=== PATIENT | female | born 1995 | race Caucasian/White ===

== ENCOUNTER 2024-05-01 21:54 | Emergency (ER) | payer OTHER, SELFPAY ==
[2024-05-01 22:19] VITALS: BP 158/114
[2024-05-01 22:38] VITALS: BMI 86.1
[2024-05-01 22:52] LABS: % Basophils 0.5 % (0-2); % Eosinophils 2.1 % (0-6); % Immature Granulocytes 0.3 % (0-0.5); % Lymphocytes 28.5 % (20.5-51.1); % Monocytes 5.7 % (1.7-9.3); % Neutrophils 62.9 % (42.2-75.2); Absolute Basophils 0.1 10^3/uL (0-0.2); Absolute Eosinophils 0.2 10^3/uL (0-0.7); Absolute Lymphocytes 2.7 10^3/uL (1.2-3.4); Absolute Monocytes 0.6 10^3/uL (0.1-0.6); Hemoglobin 12.8 g/dL (12.0-16.0); Mean Corpuscular Hgb 26.9 pg (27.0-31.0); Mean Corpuscular Volume 84.2 fL (81.0-99.0); Mean Platelet Volume 11.6 fL (7.4-10.4); Nucleated Red Blood Cells % 0 %; Platelet Count 290 10^3/uL (130-400); Red Blood Cell Count 4.75 10^6/uL (4.20-5.40); Red Cell Dist. Width 14.3 % (11.5-14.5); White Blood Cell Count 9.6 10^3/uL (4.8-10.8)
[2024-05-01 23:03] LABS: ALT (SGPT) 30 U/L (0-35); AST (SGOT) 26 U/L (14-36); Albumin 4.3 g/dl (3.5-5.0); Alkaline Phosphatase 111 U/L (38-126); Blood Urea Nitrogen 15 mg/dl (7-17); Calcium 9.2 mg/dl (8.4-10.2); Carbon Dioxide 24 mmol/L (22-30); Chloride 103 mmol/L (98-107); Estimated Creatinine Clearance > 125 ml/min; Glucose 179 mg/dl (70-99); Sodium 137 mmol/L (135-145); Total Bilirubin 0.6 mg/dl (0.2-1.3); Total Protein 7.9 g/dl (6.3-8.2); eGFR > 60.00
[2024-05-01 23:14] LABS: NT-proBNP 116 pg/ml; Troponin I < 0.012 ng/ml
[2024-05-01 23:34] VITALS: BP 146/75
[2024-05-02] MEDS: TORADOL 30 MG IM (00:13)
--- NOTE | 2024-05-02 00:18 | ED.GENMED ---
History of Present Illness
General
Chief Complaint: Fainting/Passed Out
Source: patient and significant other
Exam Limitations: none
Time Seen by Provider: 05/01/24 23:58
History of Present Illness
History of Present Illness:
See MDM
Past History
Past History
ED Past Medical History: None
ED Past Surgical History: None
Social History
Tobacco: Non-smoker
Alcohol: None
Phy Exam
Physical Exam
Physical Exam:
See MDM
Course
Orders/Labs/Results
Orders:
Orders
05/01/24 21:58
EKG [Electrocardiogram (*1)] Urgent
Reason for Study: Syncope
05/01/24 21:59
EKG- Treatment ONCE
05/01/24 22:29
Electrocardiogram (*1) Urgent
Reason for Study: Other
Other Reason for Exam: Respiratory Distress
Cardiac Monitoring- Treatment ONCE
EKG- Treatment ONCE
IV Insert/Care/Rem.- Treatment PRN
CR Chest - 2 Views Urgent
Comment:
Reason For Exam: respiratory distress
O2 Therapy [RESP] Urgent
Titrate/Wean O2 to maintain O2 sat greater than (%): 93
Special Instructions: TO MAINTAIN CONTINUOUS O2 SATS >/= 93%
Pulse Ox/cont/shift [RESP] Urgent
Quantity: 1
Special Instructions: continuous pulse ox
05/01/24 22:37
Complete Blood Count/With Diff Urgent
Comprehensive Metabolic Panel Urgent
NT-proBNP Urgent
Troponin I Urgent
05/02/24 00:07
CT Head W/o Iv Contrast Urgent
Comment:
Reason For Exam: R side headache
Ketorolac [Toradol] 30 mg IM NOW STA
Abnormal Lab Results
05/01/24
22:37
MCH 26.9 L pg
(27.0-31.0)
MCHC 32.0 L g/dL
(33.0-37.0)
MPV 11.6 H fL
(7.4-10.4)
Glucose 179 H mg/dl
(70-99)
05/01/24 22:37
05/01/24 22:37
Vital Signs
Initial and Last Documented VS:
Initial Vital Signs
Temp Pulse Resp BP Pulse Ox
98.6 F 95 20 158/114 96
05/01/24 22:19 05/01/24 22:19 05/01/24 22:19 05/01/24 22:19 05/01/24 22:19
Last Documented Vital Signs
Temp Pulse Resp BP Pulse Ox
98.6 F 87 18 146/75 97
05/01/24 22:19 05/01/24 23:34 05/01/24 23:34 05/01/24 23:34 05/01/24 23:34
MDM/Problems Addressed
Differential Diagnosis Includes:
HPI and MDM Narrative:
28-year-old female presenting for evaluation of headache and confusion. Her significant other noted that she was sleeping on the couch. Patient does acknowledge that she laid down to take a nap. He was worried because she was hard to arouse and
had repetitive questioning. They initially thought this could be a diabetic episode so she ate. Symptoms did not improve so they came to the emergency department for evaluation. Patient started to feel better. The boyfriend did noted that she
had a small yudy on the right side of her scalp. Patient is unsure if she hit her head. She has a longstanding history of multiple concussions
On exam, patient has pain with rapid horizontal eye movement. Bright lights do make symptoms worse. Will obtain CT head given the vague complaints but discussed possible concussion
Physical exam
General: Well appearing and non-toxic
HEENT: protecting airway. Pupils equal reactive. EOMI. Pain with palpation of right sided scalp. No pain with palpation of temporal artery
Neck: appears supple
CV: No evidence of cyanosis
Resp: No accessory muscle use
Abd: Non-distended
Extremities: No deformities
Neuro: alert
Psych: Normal affect
Skin: Intact
Problems Addressed including Acute and Chronic Conditions affecting care:
1. Headache with repetitive questioning
Acuity: acute
Prognosis: stable
Details: Symptoms are resolving but given the pain with rapid horizontal eye movement and photophobia and discomfort while watching TV, discussed likely concussion
Updates
CT head negative. Patient mookie well-appearing and nontoxic
Differential Diagnosis (but not limited to): Concussion, head injury, contusion, seizure
Testing considered: Urinalysis
Drug therapy (if applicable): OTC meds, please see d/c instruction regarding Rx drugs
Amount and/or Complexity of Data Reviewed
Clinical info obtained from: Patient
External data reviewed: N/A
Labs I independently reviewed (but not limited to): Mild hyperglycemia
Radiology: The CT scan was personally and independently reviewed. In addition, official CT report reviewed.
Pulse Ox: not hypoxic
EKG independently reviewed: Sinus rhythm, normal axis, no STEMI
Violin Maker Hand: N/A
Critical Care: N/A
Risk of Complication:
Social Determinants of health: Good social support
Discussed with other providers: N/A
Escalation of Care includes Admit/Obs: After being observed in the Emergency Department, pt stable for discharge.
Occasional wrong word or 'sound a like' substitutions may have occurred due to the inherent limitations of voice recognition software. Read the chart carefully and recognize, using context, where substitutions have occurred.
*Critical Care Note
Total Time (30-74mins, 75-104mins- exclusive of procedures): Not Applicable
ED Attending Note
-
Portions of this chart may have been created with voice recognition software.� Occasional wrong word or��sound alike� substitutions may have occurred due to the inherent limitations of voice recognition software.
Discharge Plan
Departure
Patient Disposition: Home (Routine Discharge)
Date of Disposition: 05/02/24
Time of Disposition: 02:19
Patient with high blood pressure during this ER visit?: No
Discharge Problem:
Concussion
Instructions: Concussion, Adult ED
Referrals:
UNKNOWN - PT DOES,NOT KNOW [Family Provider] -
Activity Restrictions/Additional Instructions:
Please return for any worsening symptoms.
You may return at any time if you have further concerns.
Please follow up with your doctor at the first available appointment, preferably this week.
Thank you for choosing [facility].
Interventions
Interventions:
*Risk Screen - Suicide Last Done: 05/01/24 22:19
*General Assessment Last Done: 05/01/24 22:19
*Neglect/Abuse Screening Last Done: 05/01/24 22:19
ED- Fall Risk Assessment Last Done: 05/01/24 22:19
*ED COVID-19 Vaccine History Last Done: 05/01/24 22:19
Discharge Date and Time
Print Language: IRANIAN
== END 2024-05-02 02:33 | disposition home or self-care (01) ==
LOC: EMR 21:54
PROVIDERS: Emergency Medicine; EMERGENCY PHYSICIAN Student in an Organized Health Care Education/Training Program
DX: S06.0XAA Concussion with loss of consciousness status unknown, initial encounter (principal); X58.XXXA Exposure to other specified factors, initial encounter
CPT/HCPCS: 99284; 96372; 70450; 71046; 80053; 83880; 84484; 85025; 93005

== ENCOUNTER 2024-06-08 09:58 | Inpatient (IN) | payer SELFPAY ==
[2024-06-08 05:52] VITALS: BP 160/94
--- NOTE | 2024-06-08 06:30 | ED.GENMED ---
History of Present Illness
General
Chief Complaint: Cold/Flu/URI Symptoms
Time Seen by Provider: 06/08/24 06:29
History of Present Illness
History of Present Illness:
TIME OF INITIAL ENCOUNTER: 6:35 AM
HPI: The patient presents with 24 hours of cough and shortness of breath. She had a temperature of about 103 yesterday. She has primary concern to the shortness of breath. She has no lower extremity edema. She has increased pain in the chest when
she coughs.
EXAM:
GENERAL: The patient is tachypneic, markedly elevated BMI
HEENT: Moist oral mucosa
CARDIOVASCULAR: No murmurs, tachycardic heart rate, regular rhythm, mild anterior chest wall tenderness
PULMONARY: Mild respiratory distress, breath sounds are clear and equal
ABDOMEN: Soft with no peritoneal signs, no tenderness
NEUROLOGIC: Good strength all extremities, no coordination deficits
PSYCHIATRIC: Appropriate mental status, normal insight and judgement
EXTREMITIES: Nontender, no edema, moves all extremities equally
SKIN: No rash, no lesions
NUMBER AND COMPLEXITY OF PROBLEMS ADDRESSED AT THE ENCOUNTER
� Chronic conditions affecting care: Asthma, diabetes, anxiety/depression
� Acute Exacerbation and/or Progression of Chronic Illness: This is an acute problem
� Differential Diagnosis includes: Viral syndrome, flu, COVID, pneumonia, PE, dyspnea related to obesity, obesity hypoventilation syndrome
AMOUNT AND/OR COMPLEXITY OF DATA TO BE REVIEWED AND ANALYZED
� I performed an independent evaluation of and my interpretation is:
EKG: Sinus 114, normal axis
CT:
X-rays: Chest x-ray clear
Laboratory Studies: White count is, hemoglobin normal, glucose 211 otherwise chemistries unremarkable, hCG negative, COVID and flu are both negative
Other:
� Review of other/old records: The patient was seen here 1 month ago diagnosed with a concussion
� Clinical information was obtained by an independent historian: I spoke to at bedside
� Prescriptions/Medications Considered but not given:
� Further testing considered but not performed:
RISK OF COMPLICATIONS AND/OR MORBIDITY OR MORTALITY OF PATIENT MANAGEMENT
� Social determinants of health affecting care: Lives at home
� Discussion with other providers: Dr. Grijalva for admission; I also spoke to [facility] after initially planned on keeping patient here
� Escalation of care including admission/observation vs risk of discharge considered:
ANY OTHER UPDATES:
8:15 AM: The patient reports some improvement with her breathing after a DuoNeb was given. However D-dimer is elevated. Will plan CTA.
The patient's D-dimer is elevated. She was tachypneic and tachycardic. I had ordered a CTA however she does not fit in the [facility]. I then ordered a VQ scan however they have a max limit of 500 pounds and she is over 500 pounds. After the
DuoNeb, her room air sats were 91%. She remains to tachycardic. However she does feel somewhat improved after DuoNeb was given. Will add steroids. She may have reactive airway disease as she states that she did have a fever to 103 yesterday.
She is afebrile with a normal white count now. Other than obesity, she has no other PE risk factor.
9:30 AM: I discussed case with Dr. Winston recommends attempting to see if we could transfer to another facility to facilitate BHARATHI evaluation. I spoke to the transfer center at [facility] he wants us to measure her girth. We have added BNP/troponin.
1 PM: Plan is for patient to be transferred to help later this evening at around 8:30 PM. Giving a one-time dose of Lovenox now. I spoke to Dr. Deng, ED attending at [facility]. Ultrasound negative for DVT bilaterally. Echo showed EF of 60 to 65%
with no wall motion abnormality, no reported strain.
Past History
Past History
ED Past Medical History: None
ED Past Surgical History: None
Social History
Tobacco: Non-smoker
Alcohol: None
Phy Exam
Physical Exam
Physical Exam:
See HPI
Sepsis
Sepsis Screening
Sepsis Assessment: Sepsis Ruled Out
Sepsis Screen
Sepsis Screen: Sepsis Ruled Out
Date: 06/09/24
Time: 16:32
Course
Orders/Labs/Results
Orders:
Orders
06/08/24 05:57
Test Result ONCE
06/08/24 06:10
COVID-19 Antigen Urgent
Source: Nasal Swab
Complete Blood Count/With Diff Urgent
Comprehensive Metabolic Panel Urgent
HCG, Serum Qualitative Screen Urgent
NT-proBNP Urgent
Comment: ADD ON
Influenza A+B Rapid Molecular Urgent
LINDA Source: Nasal Swab
Specimen Description:
06/08/24 06:34
0.9% Sodium Chloride 1000 ml [Nss] 1,000 ml IV BOLUS
Ipratropium/Albuterol Sulfate [Duoneb] 3 ml INH R NOW STA
Ketorolac [Toradol] 15 mg IV NOW STA
06/08/24 06:35
CR Chest - 2 Views Urgent
Comment:
Reason For Exam: flu like illness cough fever
06/08/24 06:39
Electrocardiogram (*1) Urgent
Reason for Study: Chest Pain
EKG- Treatment ONCE
06/08/24 06:50
D-Dimer Urgent
06/08/24 09:06
Dexamethasone Sod Phosphate [Decadron] 10 mg IV NOW STA
06/08/24 09:29
Add On- LAB Urgent
Tests Added?: bnp
06/08/24 09:33
Add On- LAB Routine
Tests Added?: P CHF BNP
06/08/24 09:34
Echo 2D MMode Color/Doppler Routine
Reason for Study: Sinus tach, hypoxia
Peripheral Venous Lwr Ext Bilat US [US Periph Venous LOWER Ext Joselito] Urgent
Comment:
Reason For Exam: hypoxia
06/08/24 09:45
Admit/Transfer Patient As Directed
Co-Sign Provider:
Level of Care: Inpatient admission
Assign to:: Telemetry
Physician / Group: Isabell
Diagnosis: Hypoxia
Reason for Telemetry: Arrhythmia
Date to Stop Telemetry: 06/11/24
Time to Stop Telemetry: 11:00
Reason for Hospitalization: Above
Expected length of stay greater than two midnights?: Yes
ELOS- Estimated Length of Stay in days: 2
I certify the patient meets the requirements for IP care: Yes
PRN Pain Medication Management As Directed
May give lesser potent ordered pain med per pt: Yes
preference::
Protocol:: Medication orders for pain may be administered in a
manner that supports deferring to patient preference
when the pt is:
- Requesting an ordered lesser potent pain medication.
Least to most potent pain medications are defined
as: acetaminophen < NSAID < tramadol < opioids
(morphine, oxycodone, hydromorphone).
- Requesting a lesser dose of the same medication IF
ORDERED.
- Requesting a less intrusive route of administration
if both routes are prescribed by the provider (PO <
IV).
06/08/24 09:47
Code Status As Directed
Resuscitation Status: Full Code
06/08/24 10:11
Troponin I Urgent
06/08/24 10:33
ABG [Arterial Blood Gas] Urgent
%Oxygen/Room Air: ra
06/11/24 11:00
DC Protocol for Telemetry ONCE
Abnormal Lab Results
06/08/24 06/08/24
06:10 06:50
MCHC 31.9 L g/dL
(33.0-37.0)
MPV 11.7 H fL
(7.4-10.4)
Absolute Neuts (auto) 7.4 H 10^3/uL
(1.4-6.5)
Absolute Lymphs (auto) 1.0 L 10^3/uL
(1.2-3.4)
Absolute Monos (auto) 0.7 H 10^3/uL
(0.1-0.6)
Neutrophils % 80.7 H %
(42.2-75.2)
Lymphocytes % 10.3 L %
(20.5-51.1)
D-Dimer 1.57 H ug/mlFEU
(0.00-0.50)
Glucose 211 H mg/dl
(70-99)
Alkaline Phosphatase 134 H U/L
(38-126)
06/08/24 06:10
06/08/24 06:10
Vital Signs
Initial and Last Documented VS:
Initial Vital Signs
Temp Pulse Resp BP Pulse Ox
37.1 C 133 28 160/94 97
06/08/24 05:52 06/08/24 05:52 06/08/24 05:52 06/08/24 05:52 06/08/24 05:52
Last Documented Vital Signs
Temp Pulse Resp BP Pulse Ox
36.7 C 93 26 144/73 97
06/08/24 19:55 06/08/24 21:10 06/08/24 21:10 06/08/24 21:10 06/08/24 21:10
*Critical Care Note
Total Time (30-74mins, 75-104mins- exclusive of procedures): Not Applicable
ED Attending Note
-
Portions of this chart may have been created with voice recognition software.� Occasional wrong word or��sound alike� substitutions may have occurred due to the inherent limitations of voice recognition software.
Discharge Plan
Departure
Patient Disposition: Admit
Date of Disposition: 06/08/24
Time of Disposition: 09:07
Presentation/result/management discussed w/ accepting MD/DO: Hospitalist
Discharge Problem:
Shortness of breath
Interventions
Interventions:
*Risk Screen - Suicide Last Done: 06/08/24 05:52
*General Assessment Last Done: 06/08/24 06:40
*Neglect/Abuse Screening Last Done: 06/08/24 05:52
*ED- Fall Risk Assessment Last Done: 06/08/24 06:40
*ED COVID-19 Vaccine History Last Done: 06/08/24 06:40
*Nursing Disposition Last Done: 06/08/24 18:55
ED-Female Genitourinary Assessment Last Done: 06/08/24 18:22
ED- Pulmonary Assessment Last Done: 06/08/24 12:32
Discharge Date and Time
Discharge Date/Time: 06/08/24 21:19
[2024-06-08 06:32] LABS: % Basophils 0.2 % (0-2); % Immature Granulocytes 0.4 % (0-0.5); % Lymphocytes 10.3 % (20.5-51.1); % Monocytes 7.4 % (1.7-9.3); % Neutrophils 80.7 % (42.2-75.2); Absolute Eosinophils 0.1 10^3/uL (0-0.7); Absolute Monocytes 0.7 10^3/uL (0.1-0.6); Absolute Neutrophils 7.4 10^3/uL (1.4-6.5); Hematocrit 37.9 % (37.0-47.0); Hemoglobin 12.1 g/dL (12.0-16.0); Mean Corp Hgb Conc. 31.9 g/dL (33.0-37.0); Mean Corpuscular Hgb 27.1 pg (27.0-31.0); Mean Platelet Volume 11.7 fL (7.4-10.4); Nucleated Red Blood Cells % 0 %; Platelet Count 239 10^3/uL (130-400); Red Blood Cell Count 4.46 10^6/uL (4.20-5.40); Red Cell Dist. Width 14.2 % (11.5-14.5); White Blood Cell Count 9.2 10^3/uL (4.8-10.8)
[2024-06-08 06:40] VITALS: BMI 95.5
[2024-06-08 06:48] LABS: HCG, Serum Qualitative Screen Negative
[2024-06-08 06:53] LABS: COVID-19 Antigen Negative (Negative)
[2024-06-08] MEDS: DUONEB 3 ML INH (06:55)
[2024-06-08] MEDS: TORADOL 15 MG IV (06:55)
[2024-06-08 06:56] LABS: ALT (SGPT) 28 U/L (0-35); AST (SGOT) 22 U/L (14-36); Alkaline Phosphatase 134 U/L (38-126); Blood Urea Nitrogen 12 mg/dl (7-17); Calcium 9.4 mg/dl (8.4-10.2); Carbon Dioxide 23 mmol/L (22-30); Chloride 100 mmol/L (98-107); Estimated Creatinine Clearance > 125 ml/min; Glucose 211 mg/dl (70-99); Potassium 4.5 mmol/L (3.5-5.1); Sodium 136 mmol/L (135-145); Total Bilirubin 0.6 mg/dl (0.2-1.3); eGFR > 60.00
[2024-06-08] MEDS: NSS 1000 IV (06:56)
[2024-06-08 07:16] LABS: D-Dimer 1.57 ug/mlFEU (0.00-0.50)
[2024-06-08] MEDS: DECADRON 10 MG IV (09:27)
--- NOTE | 2024-06-08 09:46 | CON.PUL ---
Consultation
Consultation Request
Date/Time Consultation Requested: 06/08/2024-10 AM
Date/Time Consultation Performed: 06/08/2024-10:30 AM
Requesting Provider: Hospitalist
Performing Provider: Dr. Rhoades
Reason for Consultation: Shortness of breath
Medical History
-
Chief Complaint: Shortness of breath
History of Present Illness:
28-year-old morbidly obese female with history of underlying asthma and diabetes presenting with shortness of breath as well as fevers up to 103, cough related chest pain found to have elevated D-dimer and suspected pulmonary embolism-pulmonary was
consulted for pulmonary embolism/shortness of breath 06/08/2024.
Past Medical History
Past Medical History: None (Morbid obesity-BMI 95.5. Asthma. Diabetes.)
Social History
Tobacco: Non-smoker
Alcohol: None
Personal:
Living: With Family
Occupational Exposures: No known asbestos exposure
Environmental Exposures: No known tuberculosis exposure
Family History
Family History: Reviewed & Not Pertinent (CAD and negative for thromboembolic disease)
Allergies / Home Medications
Allergies
Allergy/AdvReac Type Severity Reaction Status Date / Time
No Known Allergies Allergy Verified 05/01/24 22:19
Home Medications
�Medication �Instructions �Recorded �Confirmed �Last Taken �Type
escitalopram oxalate 20 mg tablet 20 mg PO HS 06/08/24 06/08/24 06/07/24 History
(Lexapro)
ibuprofen 200 mg tablet (Advil) 400 mg PO Q8HPRN PRN mild pain 06/08/24 06/08/24 06/07/24 History
Review of Systems
-
Unable to Obtain full review of systems at this time due to: Other (Per HPI)
Vitals / Labs / Diagnostic Testing
Vital Signs
Temp Pulse Resp BP Pulse Ox
98.8 F 114 16 160/94 91
06/08/24 05:52 06/08/24 08:15 06/08/24 06:46 06/08/24 05:52 06/08/24 08:15
Lab Data
06/08/24 06:10
06/08/24 06:10
Microbiology
06/08/24 06:10 Nasal Swab Influenza Types A & B (RYLAN) - Final
Negative for Influenza A & B, NAAT
Negative results must be combined with clinical observations
and patient history.
Nucleic Acid Amplification test (NAAT)performed on the
[employer] platform.
Diagnostic Testing:
Physical Exam
-
Exam:
Well-nourished and well-developed in no apparent distress
HEENT-atraumatic, normocephalic
Neck-supple, no JVD, no bruit
Heart-regular rate and rhythm-no increased P2 or RV heave
Chest with diminished breath sounds, no wheezes or crackles
Abdomen-soft, nontender, nondistended, no hepatosplenomegaly
Extremities-no cyanosis, clubbing, edema and good peripheral pulses
Integument-intact, no rashes, lesions or ecchymosis
Neurology-alert and oriented, nonfocal motor and sensory exam
Assessment
-
28-year-old morbidly obese female with history of underlying asthma and diabetes presenting with shortness of breath as well as fevers up to 103, cough related chest pain found to have elevated D-dimer and suspected pulmonary embolism-pulmonary was
consulted for pulmonary embolism/shortness of breath 06/08/2024.
Pulmonary embolism suspected-high clinical suspicion
Suspect provoked-more sedentary than usual
Unable to perform CT or VQ scan due to body habitus
PESI 38-class I-low risk
Elevated D-dimer-1.57
Sinus tachycardia
Bronchitis
Hyperglycemia.
MICHAEL strongly suspected
Conditions present prior to admission:
Morbid obesity-BMI 95.5
Asthma
Diabetes
Plan
Patient will be admitted to telemetry for close observation
Supplemental oxygen as needed
Aspiration precautions
Incentive spirometry.
Nebulizers as needed.-Currently not bronchospastic-history of 'sports asthma'
High clinical suspicion for pulm embolism with elevated [id number] to perform CT or VQ scan due to body habitus
Check echocardiogram
Check lower extremity ultrasound
May need eventual hypercoagulable workup-reports being more sedentary than usual
Full PESI summarized above
Heparin drip recommended
Benefits and risks of thrombolytics therapy were reviewed with patient
Patient has mild tachycardia and no hypotension-currently risks of aggressive thrombolytic therapy outweigh [id number] notified of options, reasons for conservative standard of care therapy and is in agreement
Bedrest �24 hours
DVT prophylaxis-on full anticoagulation
Early nutrition
Early mobilization.
History consistent with obstructive sleep apnea-needs workup for this as well
Outpatient pulmonary follow-up And sleep disorders [id number] outpatient PFTs and sleep study
Diagnostic data:
Chest x-ray 05/01/2024-NAD
Chest x-ray 06/08/2024-NAD
CT head 05/02/2024-mild nonacute sinusitis, no acute intracranial abnormalities
Data Reviewed
-
EKG: Report reviewed by me
Radiology: Report reviewed by me
CT Scan: Report reviewed by me
Labs: Discussed with Physician
Old Records: Requested
Total Time Spent with Patient (in minutes): 55
--- NOTE | 2024-06-08 10:02 | HPS.HSE ---
Family Physician
-
Family Physician: CYNTHIA Celis
Chief Complaint
-
Shortness of breath and fever
History of Present Illness
Patient is a 28 years old female with possible history of asthma morbid obesity with BMI of 95.5 who presents to the emergency room with acute onset of shortness of breath. Patient reports fever at home up to 103. She has cough and cough related
chest pain. She denies any syncope, lower extremity pain.
While in the emergency room patient found to be tachycardic with pulse ox at 91%. No evidence for respiratory distress upon presentation she has been afebrile and other than tachycardic hemodynamically stable. Her initial evaluation were
consistent with bronchospasm. She had been treated with short acting nebulized bronchodilators and IV Decadron she reports some improvement.
Additional evaluation were consistent with elevated D-dimer. ECG with sinus tachycardia.
She is tested negative for influenza and COVID.
With concern for possible thromboembolic disease/PE, patient ordered, although due to body habitus was not able to fit to CT scan or VQ scan.
Medical History
Past Medical History
Past Medical History: Reports Asthma and NIDDM
Past Surgical History: Reports None
Social History
Tobacco: Non-smoker
Alcohol: None
Drug: None
Personal:
Living: With Family
Family History
Family History: Other (Positive for CAD, negative for thromboembolic disease)
Allergies / Home Medications
Allergies reflects when Allergies were last updated in [employer].
Home Medications with original date entered in [employer]
Allergy/Medication List:
Allergies
Allergy/AdvReac Type Severity Reaction Status Date / Time
No Known Allergies Allergy Verified 05/01/24 22:19
Home Medications
escitalopram oxalate 20 mg tablet (Lexapro) 20 mg PO HS 06/08/24
ibuprofen 200 mg tablet (Advil) 400 mg PO Q8HPRN PRN mild pain 06/08/24
Review of Systems
-
A 12 point ROS was completed and negative except as noted: Yes
Physical Exam
Vital Signs
Vital Signs
Temp Pulse Resp BP Pulse Ox
98.8 F 114 16 160/94 91
06/08/24 05:52 06/08/24 08:15 06/08/24 06:46 06/08/24 05:52 06/08/24 08:15
Physical Exam
General: Well Developed, Well Nourished and No Apparent Distress
HEENT: NormoCephalic, Moist mucous membranes and Atraumatic
Respiratory: Clear
Cardiac: S1/S2 and Regular Rhythm; No Murmur or Rub
GI: Soft, Non Tender, Non Distended and Normal Bowel Sounds; No Organomegaly
Rectal: Deferred by Provider
Musculoskeletal: No Clubbing, No Cyanosis and No Edema
Skin: No Rash
Neuro: Nonfocal/grossly intact
Laboratory Results
-
06/08/24 06:10
06/08/24 06:10
Laboratory Results
Total Bilirubin 0.6 mg/dl (0.2-1.3) 06/08/24 06:10
AST 22 U/L (14-36) 06/08/24 06:10
ALT 28 U/L (0-35) 06/08/24 06:10
Alkaline Phosphatase 134 U/L (38-126) H 06/08/24 06:10
Impression/Plan
-
IMPRESSION:
Acute hypoxic respiratory insufficiency presented with hypoxia at 91% on room air.
Concern for upper respiratory tract infection
Remains significant concern for pulmonary embolism.
Sinus tachycardia.
Morbid obesity BMI 95.5.
Reported history of diabetes not on glucose lowering medications prior to admission.
Remote history of asthma not any medications prior to admission
PLAN:
Patient remains fairly high risk for pulmonary embolism
Sinus tachycardia
Elevated D-dimer at 1.57.
Chest x-ray with no acute disease.
CBC/BMP unremarkable.
Due to diabetic habitus unable to perform CT PE protocol or VQ scan.
Check ABG.
Echocardiogram.
Lower extremity Doppler
Cardiac markers including troponin and BNP
If persistent symptoms including sinus tachycardia and no response to nebulizers and corticosteroids, would have a low threshold for empiric anticoagulation with unfractionated heparin.
Also requested ED providers to inquire on option to transfer to bariatric center for further testing.
Pulmonary evaluation
Reported history of diabetes
Not on any glucose lowering medications prior to admission
Check hemoglobin A1c
Basal bolus protocol with serial Accu-Cheks.
Check TSH and lipid profile
Full code
DVT prophylaxis subcu heparin
--- NOTE | 2024-06-08 10:24 | CARDSERVLU ---
Echocardiogram with [facility] completed after protocol screening completed. Allergies verified.
Patent IV site: _Left wrist site site___
IV site flushed with 0.9% NaCl pre and post administration. Pt denied any chance of .
Diluted bolus method utilized to enhance visualization of ventricular pinto.
Total volume given: __3__ mL
Patient tolerated all procedures well without complications.
[2024-06-08 10:47] LABS: B.E. 1.9 mmol/L; HCO3 25.6 mmol/L (21-28); O2 Saturation % 99.5 % (94-98); PCO2 36 mmHg (32-35); PO2 116 mmHg (83-108); pH 7.46 (7.35-7.45)
[2024-06-08 11:13] LABS: Troponin I < 0.012 ng/ml
[2024-06-08 11:21] LABS: NT-proBNP 115 pg/ml
[2024-06-08] MEDS: ATIVAN 1 MG IV (12:52)
[2024-06-08] MEDS: TYLENOL 1000 MG PO (14:27)
[2024-06-08] MEDS: LOVENOX 200 MG SC (14:28)
[2024-06-08 15:47] VITALS: BP 131/74
[2024-06-08 19:55] VITALS: BP 130/74
[2024-06-08 21:10] VITALS: BP 144/73
== END 2024-06-08 21:20 | disposition short-term general hospital (02) | DRG 176 ==
LOC: ED 09:58
PROVIDERS: ADMITTING PHYSICIAN Internal Medicine; EMERGENCY PHYSICIAN Emergency Medicine; FAMILY PHYSICIAN Nurse Practitioner Adult Health; OTHER PHYSICIAN Internal Medicine Critical Care Medicine
DX: I26.99 Other pulmonary embolism without acute cor pulmonale (principal); E66.2 Morbid (severe) obesity with alveolar hypoventilation; Z68.45 Body mass index [BMI] 70 or greater, adult; J45.909 Unspecified asthma, uncomplicated; E11.65 Type 2 diabetes mellitus with hyperglycemia; R06.89 Other abnormalities of breathing; F32.A Depression, unspecified; F41.9 Anxiety disorder, unspecified; R79.89 Other specified abnormal findings of blood chemistry; R09.02 Hypoxemia; Z11.52 Encounter for screening for COVID-19; Z79.84 Long term (current) use of oral hypoglycemic drugs; Z82.49 Family history of ischemic heart disease and other diseases of the circulatory system
CPT/HCPCS: 71046; 80053; 82805; 83880; 84484; 84703; 85025; 85379; 87502; 87811; 93005; 93306; 93970; 94640; 96372; 96374; 96375; 99285; Q9950

== ENCOUNTER 2025-02-18 23:22 | Emergency (ER) | payer OTHER, SELFPAY ==
[2025-02-18 23:24] VITALS: BP 157/107
--- NOTE | 2025-02-19 00:05 | ED.GENMED ---
History of Present Illness
General
Chief Complaint: Skin Problem
Source: patient
Time Seen by Provider: 02/18/25 23:59
History of Present Illness
History of Present Illness:
29-year-old female with past medical history of asthma, [id number] diabetes, anxiety and depression presenting to the ER for evaluation of what she believes to be a cyst to her right anterolateral thigh over the last couple of days, the
area burst with some slight drainage but now with increased pain, erythema, warmth and tenderness. No fevers, chills or rigors. Denies any history of similar. Has not been on any antibiotics recently.. No other concerns presently.
Past History
Past History
ED Past Medical History: Asthma, NIDDM and Psychiatric
ED Past Surgical History: Orthopedic and Tonsilectomy
Social History
Tobacco: Non-smoker
Alcohol: None
Drug: None
Personal:
Living: with family
Review of Systems
Review of Systems
All Other Systems: ROS reviewed and negative except as documented in HPI and ROS
Phy Exam
Physical Exam
Physical Exam:
GENERAL: Alert , in no apparent distress
EYE: conjunctiva clear
Head: Normocephalic atraumatic
NECK: Supple,
ENT: mmm.
LUNGS: no acute respiratory distress
NEUROLOGICAL: Alert and oriented
SKIN: Warm and dry, area of erythema right anterolateral thigh with induration, warmth and tenderness. no fluctuance. no drainage. no streaking. measures ~1.5cm in total length
MUSCULOSKELETAL: well perfused.
PSYCH: Normal and appropriate interaction.
Sepsis
Sepsis Screening
Sepsis Assessment: Sepsis Ruled Out
Sepsis Screen
Sepsis Screen: Sepsis Ruled Out
Date: 02/19/25
Time: 00:15
Course
Orders/Labs/Results
Orders:
Orders
02/19/25 00:04
Cephalexin Monohydrate [Keflex] 500 mg PO NOW STA
Sulfamethox./Trimethoprim Ds [Bactrim Ds 800 mg/160 mg] 1 tablet PO NOW STA
Vital Signs
Initial and Last Documented VS:
Initial Vital Signs
Temp Pulse Resp BP Pulse Ox
99.1 F 115 34 157/107 97
02/18/25 23:24 02/18/25 23:24 02/18/25 23:24 02/18/25 23:24 02/18/25 23:24
Last Documented Vital Signs
Temp Pulse Resp BP Pulse Ox
99.1 F 115 34 157/107 97
02/18/25 23:24 02/18/25 23:24 02/18/25 23:24 02/18/25 23:24 02/19/25 00:05
MDM/Problems Addressed
Differential Diagnosis Includes:
Cellulitis
Abscess
Sebaceous cyst
Erythema Migrans
DVT
Phlebitis
MDM/Problems Addressed:
29-year-old female presenting to the ER for evaluation of area of erythema, pain and increased warmth over the last couple of days. No fevers or infectious symptoms but patient does have a history of rat-tyehllj-ofkjozxaq diabetes. She is in no
acute distress and otherwise hemodynamically stable. Area seems to be most consistent with cellulitis with potential for possible abscess however no area of fluctuance at this time. Will treat with warm compresses, NSAIDs/Tylenol and start
antibiotics with Keflex and Bactrim. Patient advised on return precaution. Stable for discharge.
Chronic conditions affecting care: DM
*Pulse Oximetry
SaO2: 97
Oxygen Mode of Delivery: Room air
Patient hypoxic: no
*Critical Care Note
Total Time (30-74mins, 75-104mins- exclusive of procedures): Not Applicable
ED Attending Note
-
Portions of this chart may have been created with voice recognition software.� Occasional wrong word or��sound alike� substitutions may have occurred due to the inherent limitations of voice recognition software.
Discharge Plan
Departure
Patient Disposition: Home (Routine Discharge)
Date of Disposition: 02/19/25
Time of Disposition: 00:05
Patient with high blood pressure during this ER visit?: Yes
Discharge Problem:
Cellulitis of right thigh
Instructions: Cellulitis (Skin Infection), Adult (DC)
Prescriptions:
New
cephalexin 500 mg tablet
500 mg PO BID Qty: 19 0RF
sulfamethoxazole-trimethoprim [Bactrim DS] 800-160 mg tablet
1 tab PO BID Qty: 19 0RF
No Action
ibuprofen [Advil] 200 mg Tablet
400 mg PO Q8HPRN PRN (Reason: mild pain)
escitalopram oxalate [Lexapro] 20 mg Tablet
20 mg PO HS
Interventions
Interventions:
*Risk Screen - Suicide Last Done: 02/18/25 23:24
*General Assessment Last Done: 02/19/25 00:13
*Neglect/Abuse Screening Last Done: 02/19/25 00:13
*ED- Fall Risk Assessment Last Done: 02/19/25 00:13
*ED COVID-19 Vaccine History Last Done: 02/19/25 00:13
*ED Influenza Vaccine History Last Done: 02/19/25 00:13
*Nursing Disposition Last Done: 02/19/25 00:14
ED-Skin Assessment Last Done: 02/19/25 00:14
Discharge Date and Time
Print Language: [place]
[2025-02-19] MEDS: BACTRIM DS 800 MG/160 MG 1 TABLET PO (00:10)
[2025-02-19] MEDS: KEFLEX 500 MG PO (00:10)
== END 2025-02-19 00:19 | disposition home or self-care (01) ==
LOC: EMR 23:22
PROVIDERS: EMERGENCY PHYSICIAN Student in an Organized Health Care Education/Training Program
DX: L03.115 Cellulitis of right lower limb (principal); J45.909 Unspecified asthma, uncomplicated; E11.9 Type 2 diabetes mellitus without complications
CPT/HCPCS: 99283